=== PATIENT | male | born 1945 | race Caucasian/White ===

== ENCOUNTER 2023-03-23 03:14 | Inpatient (IN) | payer OTHER ==
[2023-03-23 04:01] LABS: PTT 23.8 sec (22.9-36.1); Prothrombin Time 13.9 sec (12.0-14.7)
[2023-03-23 04:13] LABS: Magnesium 1.6 mg/dL (1.6-2.6)
[2023-03-23 05:30] LABS: Bacteria/HPF None Seen HPF (None Seen); Bilirubin Negative (Negative); Blood, Urine Negative (Negative); CAUTI Indications for Culture Pelvic or flank pain; Clarity Clear (Clear); Glucose, Urine (Dipstick) 30 mg/dL (Negative); Ketone, Urine Negative (Negative); Leukocyte Negative Leu/uL (Negative); Mucous/LPF Rare LPF (<2+); Nitrite Negative (Negative); Protein, Urine (Dipstick) 10 mg/dL (Neg-Trace); RBC/HPF 0-3 HPF (0-3); Specific Gravity, Urine 1.047 (1.002-1.036); Squamous Epithelial 0-3 HPF (0-3); Urobilinogen Normal mg/dL (Less than 2); WBC/HPF 0-3 HPF (0-3); pH, Urine 5.5 (5.0-9.0)
[2023-03-23 05:32] LABS: Urine Culture Reflex No No
[2023-03-23] MEDS ORDERED: Vancomycin 1 GM/200 ML (FROZEN) BAG ONE (06:12)
[2023-03-23] MEDS ORDERED: Cefepime 2 GM VIAL ONE (06:12)
[2023-03-23] MEDS ORDERED: Iopamidol-370 76% 500 ML MDV (1 ML CHARGE) ONE (08:33)
[2023-03-23 08:54] LABS: Troponin I 0.022 ng/mL (< 0.028)
[2023-03-23 09:12] VITALS: BMI 27.6
[2023-03-23] MEDS ORDERED: Sodium Chloride 0.9% 1,000 ML IV SCH (10:15)
[2023-03-23 11:21] LABS: Troponin I Less than 0.010 ng/mL (< 0.028)
[2023-03-23] MEDS: Heparin 5,000 UNITS/ML VIAL SC SCH ×3 (14:42→22:06)
[2023-03-23] MEDS ORDERED: Ipratropium/Albuterol 3 ML NEB NEB SCH (20:30)
[2023-03-23 21:13] LABS: Magnesium 1.7 mg/dL (1.6-2.6)
[2023-03-23] MEDS: Minocycline HCl 50 MG CAP PO SCH (22:05)
[2023-03-24 00:04] LABS: Lactic Acid 2.7 mmol/L (0.5-2.2)
[2023-03-24] MEDS ORDERED: Ipratropium/Albuterol 3 ML NEB NEB PRN (02:18)
[2023-03-24 05:03] LABS: #Basophils 0.1 thou/uL (0.0-0.2); #Eosinphils 0.1 thou/uL (0.0-0.7); #Monocytes 1.1 thou/uL (0.11-0.59); #Neutrophils 6.6 thou/uL (1.40-6.50); %Basophils 0.8 % (0.0-1.0); %Eosinophils 0.9 % (0.0-10.0); %Lymphocytes 17.8 % (21.0-51.0); %Monocytes 10.8 % (0.0-10.0); %Neutrophils 67.4 % (42.0-75.0); Hematocrit 32.9 % (42.0-52.0); Hemoglobin 10.5 g/dL (14.0-18.0); Mean Corpuscular HGB CONC 31.9 g/dL (32.0-36.0); Mean Corpuscular Hemoglobin 31.7 pg (27.0-31.0); Mean Corpuscular Volume 99.4 fl (78.0-98.0); Mean Platelet Volume 11.5 fL (7.4-10.4); Platelet Count 131 10x3/uL (130-400); RBC Distribution Width 14.7 % (11.5-14.5); Red Blood Cell (RBC) Count 3.31 mill/uL (4.70-6.10); White Blood Cell (WBC) Count 9.8 10x3/uL (4.8-10.8)
[2023-03-24 05:24] LABS: Anion Gap 13 mmol/L (10-20); BUN (Urea Nitrogen) 38 mg/dL (8.4-25.7); Calc. Creatinine Clearance 45 mL/min (70-130); Calcium 8.4 mg/dL (7.8-10.44); Carbon Dioxide 19 mmol/L (23-31); Chloride 110 mmol/L (98-107); Estimated GFR 34; Glucose 117 mg/dL (83-110); Potassium 3.7 mmol/L (3.5-5.1); Sodium 138 mmol/L (136-145)
[2023-03-24] MEDS ORDERED: Ferrous Sulfate 325 MG TAB PO SCH (09:00)
[2023-03-24] MEDS: predniSONE 20 MG TAB PO SCH (09:24)
[2023-03-24] MEDS: Minocycline HCl 50 MG CAP PO SCH ×2 (09:24→21:35)
[2023-03-24] MEDS: Heparin 5,000 UNITS/ML VIAL SC SCH ×3 (09:24→21:35)
[2023-03-24] MEDS: DULoxetine 60 MG CAP PO SCH (09:24)
[2023-03-24 14:49] LABS: Campy jejuni + coli by PCR Negative (Negative); STEC Shiga Toxin 1+2 Negative (Negative); Salmonella spp. by PCR Negative (Negative); Shigella spp + EIEC by PCR Negative (Negative)
[2023-03-24] MEDS ORDERED: Loperamide HCl 2 MG CAP PO PRN (18:33)
[2023-03-24] MEDS ORDERED: Terazosin HCl 5 MG CAP PO SCH (21:00)
[2023-03-24] MEDS ORDERED: Terazosin HCl 1 MG CAP PO SCH (21:00)
[2023-03-24] MEDS: Calcium Carbonate 600 MG TAB PO SCH (21:35)
[2023-03-25 04:11] LABS: #Basophils 0.1 thou/uL (0.0-0.2); #Eosinphils 0.2 thou/uL (0.0-0.7); #Monocytes 0.9 thou/uL (0.11-0.59); #Neutrophils 6.1 thou/uL (1.40-6.50); %Basophils 0.6 % (0.0-1.0); %Eosinophils 1.6 % (0.0-10.0); %Lymphocytes 21.6 % (21.0-51.0); %Monocytes 9.3 % (0.0-10.0); %Neutrophils 64.7 % (42.0-75.0); Hematocrit 30.8 % (42.0-52.0); Hemoglobin 10.1 g/dL (14.0-18.0); Mean Corpuscular HGB CONC 32.8 g/dL (32.0-36.0); Mean Corpuscular Hemoglobin 32.1 pg (27.0-31.0); Mean Corpuscular Volume 97.8 fl (78.0-98.0); Mean Platelet Volume 11.3 fL (7.4-10.4); Platelet Count 125 10x3/uL (130-400); RBC Distribution Width 14.4 % (11.5-14.5); Red Blood Cell (RBC) Count 3.15 mill/uL (4.70-6.10); White Blood Cell (WBC) Count 9.4 10x3/uL (4.8-10.8)
[2023-03-25 04:31] LABS: Anion Gap 12 mmol/L (10-20); BUN (Urea Nitrogen) 35 mg/dL (8.4-25.7); Calc. Creatinine Clearance 65 mL/min (70-130); Calcium 8.3 mg/dL (7.8-10.44); Carbon Dioxide 22 mmol/L (23-31); Chloride 109 mmol/L (98-107); Estimated GFR 52; Glucose 102 mg/dL (83-110); Potassium 3.7 mmol/L (3.5-5.1); Sodium 139 mmol/L (136-145)
[2023-03-25] MEDS: Calcium Carbonate 600 MG TAB PO SCH (08:10)
[2023-03-25] MEDS: DULoxetine 60 MG CAP PO SCH (08:10)
[2023-03-25] MEDS: Heparin 5,000 UNITS/ML VIAL SC SCH (08:10)
[2023-03-25] MEDS: predniSONE 20 MG TAB PO SCH (08:10)
[2023-03-25] MEDS: Minocycline HCl 50 MG CAP PO SCH (08:10)
[2023-03-25 11:22] VITALS: BP 95/50; TEMP 98.7
== END 2023-03-25 12:30 | DRG 392 ==
LOC: ERS 03:14 → EEVIPCON 03:14 → ERHOLD 08:07 → 2NO 12:48
PROVIDERS: ADMIT Internal Medicine; ATTEND Family Medicine
DX: A08.4 Viral intestinal infection, unspecified (principal); L12.0 Bullous pemphigoid; C79.89 Secondary malignant neoplasm of other specified sites; Z66 Do not resuscitate; I12.9 Hypertensive chronic kidney disease with stage 1 through stage 4 chronic kidney disease, or unspecified chronic kidney disease; N18.30 Chronic kidney disease, stage 3 unspecified; E86.0 Dehydration; C61 Malignant neoplasm of prostate; I95.9 Hypotension, unspecified
CPT/HCPCS: 36415; 71045; 71275; 74177; 80048; 81001; 82274; 83605; 83630; 83735; 83880; 84145; 84439; 85025; 85610; 85730; 87040; 87070; 87077; 87149; 87205; 87324; 87449; 87505; 93005; 94640; 94760; 96360; 96361; 96365; 96366; 96367; J0692; J1644; J3370-JW; J7050; J7512; J7620; Q9967